=== PATIENT | female | born 1965 | race Caucasian/White ===

== ENCOUNTER → 2024-03-19 | Outpatient (CLI) | payer BC, SELFPAY ==
[2024-03-19 12:57] LABS: Absolute Neutrophil Count 3.5 X10^3/uL (2.0-7.7); Basophil# 0.04 X10^3/uL; Basophil% 0.7 % (0-1); Eosinophil# 0.13 X10^3/uL; Eosinophils% 2.2 % (0-5); Hematocrit 41.1 % (37-47); Hemoglobin 13.5 g/dL (12.0-15.0); Mean Corp Hgb Conc 32.8 g/dL (32-36); Mean Corpuscular Hgb 29.7 pg (27.0-32.0); Mean Corpuscular Volume 90.5 fL (81-99); Mean Platelet Vol. 9.1 fl (6.2-12.0); Monocyte# 0.44 X10^3/uL; Monocyte% 7.5 % (0-10); NRBC Flagged by Analyzer 0 % (0-5); Neutrophil # 3.53 X10^3/uL (2.7-7.7); Neutrophil % 60.3 % (47-70); Platelet Count 270 K/mm3 (150-450); RBC Distribution Width CV 13.2 % (11.6-14.6); RBC Distribution Width SD 43.8 fl (35.1-43.9); Red Blood Count 4.54 M/mm3 (4.2-5.4); White Blood Count 5.9 K/mm3 (4.4-11.0)
[2024-03-19 13:27] LABS: Vitamin B12 849 pg/mL (211-911); Vitamin D,25 Hydroxy 27.8 ng/mL
[2024-03-19 13:46] LABS: AST(SGOT) 18 U/L (15-37); Alanine Aminotransfer ALT/SGPT 22 U/L (13-56); Albumin, Serum 3.8 g/dL (3.2-5.0); Alkaline Phosphatase 49 U/L (45-117); Anion Gap 9 (5-15); BUN 12 mg/dL (7-18); BUN/Creat Ratio 16.8 RATIO (10-20); Calcium,Total 8.9 mg/dL (8.5-10.1); Chloride 106 mmol/L (98-107); Cholesterol 154 mg/dL (200); Creatinine, Serum 0.72 mg/dL (0.55-1.02); EST Glomerular Filtration Rate 90 mL/min (>60); Est Glom Filt Rate - Afr Amer 108 mL/min (>60); Globulin 3.7 g/dL (2.2-4.2); Glucose 80 mg/dL (74-106); High Density Lipoprotein 71 mg/dL; Potassium 3.9 mmol/L (3.5-5.1); Protein, Total 7.5 g/dL (6.4-8.2); Sodium Level 139 mmol/L (136-145); Thyroid Stim Hormone (TSH) 1.68 uIU/mL (0.358-3.74); Triglycerides 36 mg/dL; Very Low Density Lipoprotein 7 mg/dL (5-40)
== END | disposition home or self-care (01) ==
LOC: VSLAB 08:36
PROVIDERS: PCP Nurse Practitioner Family; Visit Provider Nurse Practitioner Family
DX: E66.8 Other obesity (principal)
CPT/HCPCS: 36415; 80053; 80061; 82306; 82607; 83036; 84443; 85025

== ENCOUNTER → 2024-10-14 | Outpatient (CLI) | payer BC, SELFPAY ==
[2024-10-20 13:06] LABS: HPV Reflexed? YES, CHARGE PATIENT
== END | disposition home or self-care (01) ==
LOC: LABSPEC 12:06
PROVIDERS: PCP Nurse Practitioner Family; Referring Provider Nurse Practitioner Family; Visit Provider Nurse Practitioner Family
DX: Z01.419 Encounter for gynecological examination (general) (routine) without abnormal findings (principal)
CPT/HCPCS: 87624; 88175; G0145

== ENCOUNTER 2024-12-05 06:17 | Day surgery (SDC) | payer BC, SELFPAY ==
[2024-12-05] VITALS (9 sets, daily range): BP systolic 113–138; BP diastolic 71–77; PULSE 65–77; RESP 16; TEMP 36.3–36.6; O2SAT 94–100; BMI 23.8
--- NOTE | 2024-12-05 06:46 | PRE.ANES_ITS ---
ASA Classification* ASA Classification ASA Classification: 2 Assessment & Plan Anesthesia* Anesthesia Assessment Anesthesia Assessment: Discussed sedation and/or anesthesia options, risks, benefits, and alternatives with patient/parents/legal guardian/POA. Questions invited. The patient/parents/legal guardian/POA seems to understand and agrees to proceed with anesthesia plan. Reviewed the physical assessment, medical history, allergy history and patient home medications list prior to surgery/procedure/anesthetic and documented any changes. Performed airway and anesthesia risk assessments. Anesthesia Type Anesthesia Type: MAC Anesthesia Focused Assessment* Temperature: 98 F Pulse Rate: 68 Blood Pressure: 138/75 Respiratory Rate: 16 Pulse Ox: 98 Airway Assessment Mouth opens: >3 cm Mallampati Score: II Focused Labs Anesthesia Preop lab: CBC WBC 5.9 K/mm3 (4.4-11.0) 03/19/24 08:37 03/19/24 RBC 4.54 M/mm3 (4.2-5.4) 03/19/24 08:37 03/19/24 Hgb 13.5 g/dL (12.0-15.0) 03/19/24 08:37 03/19/24 Hct 41.1 % (37-47) 03/19/24 08:37 03/19/24 Plt Count 270 K/mm3 (150-450) 03/19/24 08:37 03/19/24 CHEMISTRY Potassium 3.9 mmol/L (3.5-5.1) 03/19/24 08:37 03/19/24 Sodium 139 mmol/L (136-145) 03/19/24 08:37 03/19/24 BUN 12 mg/dL (7-18) 03/19/24 08:37 03/19/24 Creatinine 0.72 mg/dL (0.55-1.02) 03/19/24 08:37 03/19/24 Glucose 80 mg/dL (74-106) 03/19/24 08:37 03/19/24 TSH 1.68 uIU/mL (0.358-3.74) 03/19/24 08:37 COAG Pre-Assessment Diagnosis/Proposed Procedure Planned Operative Procedure(s): COLONOSCOPY Anesthesia History Anesthesia History - [employer]: Anesthesia History - [employer] Hx Hospitalization No 04/11/25 10:21 Any Problems With Anesthesia No 11/28/24 10:21 Cholinesterase deficiency No 11/28/24 10:21 You/Your Family Experience No 11/28/24 10:21 fever (hyperthermia) with Relationship Recent Exposure to Contagious No 12/05/24 06:33 Disease Does patient have nerve No 11/28/24 10:21 stimulator Patient instructed to have device shut off --Does patient have Pacemaker No 12/05/24 06:33 or ICD? When Was Last Pacemaker Check QUESTION #4 FULL TEXT: You/Your Family Experience fever (hyperthermia) with Anesthesia Last Oral Intake Last Oral intake: Last Oral Intake NPO since 00:00 12/05/24 06:33 Meds taken in AM with sips of water? Meds patient instructed to take am of surgery PONV PONV - [employer]: PONV - [employer] Female Yes 11/28/24 10:21 HX of Motion Sickness No 11/28/24 10:21 HX of N/V After Surgery No 11/28/24 10:21 Non-Smoker Yes 11/28/24 10:21 Duration of Surgery greater No 11/28/24 10:21 than 60 minutes Number of Risk Factors 2 11/28/24 10:21 PONV Score Moderate Risk 11/28/24 10:21 Height & Weight Height & Weight: Anesthesia: Height & Weight Height 5 ft 8 in 12/05/24 06:33 Weight: 71 kg 12/05/24 06:33 Body Mass Index (BMI) 23.8 12/05/24 06:33 Respiratory Assessment Respiratory Assessment - [employer]: Respiratory Tract Infection Hx - [employer] Hx Respiratory Tract Infection No 11/28/24 10:21 STOP Sleep Apnea STOP Sleep Apnea - [employer]: STOP Sleep Apnea - [employer] Hx Hypertension No 11/28/24 10:21 Hx Sleep Apnea No 11/28/24 10:21 CPAP BIPAP Do you snore loudly (louder No 11/28/24 10:21 than talking or can be heard Do you often feel tired/ No 11/28/24 10:21 fatigued/ sleepy during daytime? Has anyone observed you stop No 11/28/24 10:21 breathing during sleep? STOP Results Negative 11/28/24 10:21 QUESTION #5 FULL TEXT : Do you snore loudly (louder than talking or can be heard through closed doors)? Tobacco Use History Tobacco Use History - [employer]: Tobacco Use History - [employer] Tobacco Use Smoking Status Never smoker 11/28/24 10:21 Hx Tobacco Use No 11/28/24 10:21 Years Smoking Packs Smoked per Day Smoking Cessation Date was within the last 15 years Hx Smoking Cessation Date Hx Smoking Cessation Counseling Hematologic Medial History Hematologic Hx - [employer]: Hematologic Medical Hx - play leader Hx of Blood Transfusion No 11/28/24 10:21 Hx of Transfusion in last 3 No 11/28/24 10:21 Months Date of Last Transfusion (if within last 3 months) Ever experience any problems No 11/28/24 10:21 with transfusion(s)? Specify any problems Hx of Preganancy in last 3 No 11/28/24 10:21 Months Nurse Filling Out Transfusion MGRISEANITH 11/28/24 10:21 & Questions: Date: 11/28/24 11/28/24 10:21 Time: 10:22 11/28/24 10:21 Patient unable to answer at this time (ie. confused, unrespo /Reproduction History /Reproductive History - [employer]: /Reproductive Hx- [employer] Hx Now No 11/28/24 10:21 Gestational Age (in weeks): EDC: Hx Hx Para Hx Section SAB No 11/28/24 10:21 PFSH Medical History (Updated 11/28/24 @ 10:28 by Marilou Herrera) Wears contact lenses Post-menopausal Alcohol use Non-smoker Screening for colon cancer Home Medications ?Medication ?Instructions ?Recorded ?Last Taken ?Type Semaglutide See Rx Instructions .Route . COMPLEX 11/28/24 11/21/24 History Allergy/AdvReac Type Severity Reaction Status Date / Time No Known Allergies Allergy Verified 12/05/24 06:33 Surgical History (Updated 11/28/24 @ 10:21 by Marilou Herrera) History of lumpectomy Social History Smoking Status: Never smoker Review of Systems (Anesthesia) ROS Narrative System reviewed and no additional complaints, except as documented.
--- NOTE | 2024-12-05 07:17 | H&P.OPEN ---
HPI - General HPI Narrative KRISTYN WHITNEY, is a 59 F who presents for screening colonoscopy. She denies any abdominal pain or blood in the stool. She has no family history of colon cancer. [facility] Medical History (Updated 11/28/24 @ 10:28 by Marilou Herrera) Wears contact lenses Post-menopausal Alcohol use Non-smoker Screening for colon cancer Home Medications ?Medication ?Instructions ?Recorded ?Last Taken ?Type Semaglutide See Rx Instructions .Route .COMPLEX 11/28/24 11/21/24 History Allergy/AdvReac Type Severity Reaction Status Date / Time No Known Allergies Allergy Verified 12/05/24 06:33 Surgical History (Updated 11/28/24 @ 10:21 by Marilou Herrera) History of lumpectomy Social History Smoking Status: Never smoker Past Medical/Surgical History Planned Operation Planned Operative Procedure(s): COLONOSCOPY Previous Hospitalizations/Surgeries HX Hospitalizations: No Any Problems With Anesthesia: No You/Your Family Experience Fever (Hyperthermia) With Anes: No Cholinesterase deficiency: No Cardiovascular Hx Hypertension: No Respiratory Hx Sleep Apnea: No Hx Respiratory Tract Infection/Cold (presently): No Do You Snore Loudly (louder than talking or can be heard): No Do You Often Feel Tired/ Fatigued/ Sleepy Dring Daytime?: No Has Anyone Observed You Stop Breathing During Sleep?: No Result (for STOP score): Negative Smoking Status: Never smoker Neurological Does patient have nerve stimulator: No Reproduction : No Miscellaneous Recent Exposure to Contagious Disease: No Allergies No Known Allergies Allergy (Verified 12/05/24 06:33) Discharge Is Pt Admitted From a Half-Way, or a [place] [facility]: No Who Could Help: family After D/C, Where Do you Plan to Go: Return Home Vital Signs Vital Signs Vital Signs: 12/05/24 06:33 12/05/24 06:33 12/05/24 06:46 Temperature 98 F 98 F Temperature Source Temporal Pulse Rate 68 68 Respiratory Rate 16 16 Respiratory Pattern Normal Blood Pressure 138/75 H 138/75 H Blood Pressure Mean 96 Blood Pressure Source Monitor Blood Pressure Position Semi-Fowlers Blood Pressure Location Right Arm Pulse Ox 98 98 Oxygen Delivery Method Room Air Weight Weight: 156 lb 8.451 oz Body Mass Index (BMI) 23.8 Physical Exam Const alert and oriented x3 HEENT normocephalic Eyes PERRL Resp normal respiratory effort and normal air movement Cardio regular rate and regular rhythm GI soft to palpation, non-tender and non-distended Extremity normal to inspection Assessment & Plan Assessment/Plan (1) Screening for colon cancer: PLAN: I explained endoscopy in detail to the patient. I explained the risks including but not limited to stroke or heart attack with anesthesia, perforation of the GI tract, bleeding, infection. I explained that any of these could necessitate further emergency surgery. The patient understands and all questions were answered sufficiently. The patient wishes to proceed with procedure. Nguyễn Yu MD Pager: [facility] [address] [place] [address], [address] [place] [address] Office: Surgery Risks - Colonoscopy Risks Include but are not Limited To: Risks include but are not limited to: Bleeding, perforation requiring further surgery, inability to complete colonoscopy requiring barium enema.
--- NOTE | 2024-12-05 08:11 | OP.CCLET_ITS ---
12/05/2024 Gilson Townsend [facility], Vp Biology-c Re : Colonoscopy procedure for Sandy Castillo [place] This procedure was performed on Thursday, December 05, 2024. My impressions and recommendations are as follows: Impressions : - Preparation of the colon was inadequate. - One medium polyp in the ascending colon, removed with a hot snare. Complete resection. Polyp tissue not retrieved. Recommendations : - Discharge patient to home. - Resume previous diet. - Continue present medications. - Repeat colonoscopy in 6 months because the bowel preparation was poor. My findings are described in the full procedure note, which is enclosed. If I can be of further assistance, please feel free to contact me at Doctor phone number(s): , Work: . Sincerely, Nguyễn Yu MD 12/05/2024 8:10:50 AM This report has been signed electronically.
--- NOTE | 2024-12-05 08:11 | OP.COLON_ITS ---
Patient Name: Sandy Castillo Procedure Date: 12/05/2024 7:17 AM Date of : 1965 Age: 59 Procedure: Colonoscopy Indications: Screening for colorectal malignant neoplasm Providers: Nguyễn Yu MD Referring MD: Gilson Townsend [facility], Database Designer-c Medicines: Propofol per Anesthesia Patient Profile: This is a 59 year old female. Refer to note in patient chart for documentation of history and physical. Last Colonoscopy: none. The patient's first colonoscopy is today. Complications: No immediate complications. Estimated blood loss: Minimal. Procedure: Pre-Anesthesia Assessment: - Prior to the procedure, a History and Physical was performed, and patient medications and allergies were reviewed. The patient's tolerance of previous anesthesia was also reviewed. The risks and benefits of the procedure and the sedation options and risks were discussed with the patient. All questions were answered, and informed consent was obtained. Prior Anticoagulants: The patient has taken no anticoagulant or antiplatelet agents. After reviewing the risks and benefits, the patient was deemed in satisfactory condition to undergo the procedure. After I obtained informed consent, the scope was passed under direct vision. Throughout the procedure, the patient's blood pressure, pulse, and oxygen saturations were monitored continuously. The Colonoscope was introduced through the anus and advanced to the cecum, identified by appendiceal orifice and ileocecal valve. The colonoscopy was performed without difficulty. The patient tolerated the procedure well. The quality of the bowel preparation was not adequate to identify polyps greater than 5 mm in size. The ileocecal valve, appendiceal orifice, and rectum were photographed. Findings: A medium polyp was found in the ascending colon. The polyp was removed with a hot snare. Resection was complete, but the polyp tissue was not retrieved. Impression: - Preparation of the colon was inadequate. - One medium polyp in the ascending colon, removed with a hot snare. Complete resection. Polyp tissue not retrieved. Recommendation: - Discharge patient to home. - Resume previous diet. - Continue present medications. - Repeat colonoscopy in 6 months because the bowel preparation was poor. Procedure Code(s): --- Professional --- 77239, Colonoscopy, flexible; with removal of tumor(s), polyp(s), or other lesion(s) by snare technique Diagnosis Code(s): --- Professional --- Z12.11, Encounter for screening for malignant neoplasm of colon D12.2, Benign neoplasm of ascending colon CPT copyright 2021 [employer]. All rights reserved. The codes documented in this report are preliminary and upon grappler review may be revised to meet current compliance requirements. Nguyễn Yu MD 12/05/2024 8:10:50 AM This report has been signed electronically. Number of Addenda: 0 Note Initiated On: 12/05/2024 7:17 AM
--- NOTE | 2024-12-05 08:25 | PCM.POST.ANE ---
Anesthesia: Postop Eval I Current Vital Signs Temperature: 97.4 F Pulse Rate: 77 Blood Pressure: 113/71 Respiratory Rate: 16 Pulse Ox: 94 Oxygen Delivery Method: Room Air Assessment Airway patent: Yes Spontaneous unlabored respirations: Yes Mental status: Asleep nausea: Yes Vomiting: No Anesthesia Complication: Yes Anesthesia Complication Comment:: pr wretching intra-op Fluid Hydration Crystalloid volume administer (ml): 105 Total IV fluid infused: 105 Progress Note Anesthesia document: Postop Eval 1 completed: Yes
--- NOTE | 2024-12-05 09:08 | PCM.POSTANE2 ---
Anesthesia Postop Eval I Sum Postop Eval Completion status Anesthesia document: Postop Eval 1 completed: Yes Anesthesia Postop Eval I Summary Anesthesia Postop Eval I Summary: Anesthesia Postop Eval I: Assessment Summary Airway patent Yes 12/05/24 08:27 [email or web address] Spontaneous unlabored Yes 12/05/24 08:27 [email or web address] respirations Mental status Asleep 12/05/24 08:27 [email or web address] nausea Yes 12/05/24 08:27 [email or web address] Vomiting No 12/05/24 08:27 [email or web address] Anesthesia Postop Eval I: Fluid Summary Crystalloid volume administer 105 12/05/24 08:27 [email or web address] (ml) Colloids volume administered ( ml) Blood Product volume administered (ml) Total IV fluid infused 105 12/05/24 08:27 [email or web address] Anesthesia Postop Eval I: Summary Notes Anesthesia Complication Yes 12/05/24 08:27 [email or web address] Anesthesia Complication pr wretching intra 12/05/24 08:27 [email or web address] Comment: -op Post-operative progress note Anesthesia: Postop Eval II Evaluation Mental status: Awake Pain Level: 0 nausea: No Vomiting: No
== END 2024-12-05 09:05 | disposition home or self-care (01) ==
LOC: EN 06:21 → AC 06:22
PROVIDERS: PCP Nurse Practitioner Family; Referring Provider Nurse Practitioner Family; Visit Provider Surgery
PROC: 0DJD8ZZ Inspection of Lower Intestinal Tract, Via Natural or Artificial Opening Endoscopic (ICD-10-PCS; CPT 45378; principal; 2024-12-05 07:25)
DX: Z12.11 Encounter for screening for malignant neoplasm of colon (principal); D12.2 Benign neoplasm of ascending colon
CPT/HCPCS: 45385; A4216; J2405

== ENCOUNTER → 2025-04-01 | Outpatient (CLI) | payer BC, SELFPAY ==
[2025-04-01 11:22] LABS: Hematocrit 40.8 % (37-47); Hemoglobin 13.6 g/dL (12.0-15.0); Immature Granulocytes Count 0.020 X10^3/uL (0.0-0.0); Mean Corp Hgb Conc 33.3 g/dL (32-36); Mean Corpuscular Volume 92.3 fL (81-99); Mean Platelet Vol. 9.2 fl (6.2-12.0); NRBC Flagged by Analyzer 0 % (0-5); Platelet Count 287 K/mm3 (150-450); RBC Distribution Width CV 12.9 % (11.6-14.6); RBC Distribution Width SD 43.9 fl (35.1-43.9); Red Blood Count 4.42 M/mm3 (4.2-5.4); White Blood Count 6.1 K/mm3 (4.4-11.0)
[2025-04-01 11:36] LABS: Color, Urine Amber (Yellow); Glucose, Dipstick Normal (Normal); Ketone-Dipstick Negative (Negative); Leukocyte Esterase-Dipstick 100 /ul (Negative); Nitrite-Dipstick Positive (Negative); Occult Blood-Urine Negative /ul (Negative); Protein-Dipstick 15 mg/dl (Negative); Specific Gravity, Urine 1.010 (1.002-1.030)
[2025-04-01 11:39] LABS: Urine Bilirubin Dipstick 6 mg/dL (Negative)
[2025-04-01 11:53] LABS: AST(SGOT) 18 U/L (<=31); Alanine Aminotransfer ALT/SGPT 15 U/L (<=34); Albumin, Serum 4.3 g/dL (3.5-5.0); Alkaline Phosphatase 51 U/L (35-104); Anion Gap 11 (5-15); BUN 8 mg/dL (4-19); BUN/Creat Ratio 10.0 RATIO (10-20); Calcium,Total 9.4 mg/dL (7.6-11.0); Carbon Dioxide 25.0 mmol/L (21.0-32.0); Chloride 104 mmol/L (98-108); Cholesterol 182 mg/dL (<=200); Globulin 3.0 g/dL (2.2-4.2); Glucose 97 mg/dL (70-99); Low Density Lipoprotein Calc. 106 mg/dL; Potassium 4.2 mmol/L (3.3-5.1); Triglycerides 63 mg/dL; Very Low Density Lipoprotein 13 mg/dL (5-40); cholesterol:hdl ratio screen 2.86
[2025-04-01 11:54] LABS: Vitamin D,25 Hydroxy 34.0 ng/mL (30-100)
[2025-04-01 12:21] LABS: Vitamin B12 3416 pg/mL (180-914)
== END | disposition home or self-care (01) ==
LOC: VSLAB 08:55
PROVIDERS: PCP Nurse Practitioner Family; Visit Provider Nurse Practitioner Family
DX: N30.00 Acute cystitis without hematuria (principal); E78.5 Hyperlipidemia, unspecified; E56.9 Vitamin deficiency, unspecified
CPT/HCPCS: 36415; 80053; 80061; 81002; 82306; 82607; 83036; 84443; 85025; 87077; 87086; 87088; 87186